=== PATIENT | male | born 1980 | race Caucasian/White ===

== ENCOUNTER 2018-06-25 08:27 | Emergency (ER) | payer BC, MEDICAID ==
[~2018-06-25] VITALS: Ht 182.9 cm; Wt 100.8 kg
[2018-06-25 08:31] VITALS: Ht 182.9 cm; Wt 100.8 kg
[2018-06-25] MEDS ORDERED: LIDOCAINE 1% (MDV) 10 ML INJ INJ STA (08:52)
[2018-06-25] MEDS ORDERED: LIDOCAINE 1% (MPF) 5 ML VIAL INJ SCH (09:00)
[2018-06-25] MEDS ORDERED: CLIN300C10 PO (09:20)
--- NOTE | 2018-06-25 09:21 | ERD ---
ER Documentation Chief Complaint Chief Complaint redness and swelling left 2nd finger nailbed HPI 37-year-old male is here with swelling to his left second finger that has had for 3 days. He is right-hand dominant. The area is getting larger and more painful. Is been no bleeding or drainage from it. No fever. No numbness or tingling. ROS All systems reviewed and are negative except as per history of present illness. Medications Home Meds Active Scripts Clindamycin Hcl* (Clindamycin Hcl*) 300 Mg Capsule, 300 MG PO TID for 7 Days, CAP Prov:EDITH DILLON PA-C 06/25/18 Allergies Allergies: Coded Allergies: No Known Allergy (Unverified , 10/09/13) PMhx/Soc Hx Alcohol Use: Yes Hx Substance Use: No Hx Tobacco Use: No FmHx Family History: No diabetes Physical Exam Vitals Vital Signs Date Temp Pulse Resp B/P (MAP) Pulse Ox O2 O2 Flow FiO2 Time Delivery Rate 06/25/18 98.7 88 18 134/83 100 08:31 (100) Physical Exam INITIAL VITAL SIGNS: Reviewed by me GENERAL: Awake, alert and oriented x 4, well appearing, nontoxic, speaking in full sentences. No acute distress HEAD: Atraumatic NECK: Supple. No masses. Full range of motion. No meningismus. No midline tenderness. RESPIRATORY: Clear to auscultation bilaterally. Symmetric chest wall rise. No wheezing or rales. No accessory muscle use. CV: Regular rate and rhythm. No murmurs, rubs, or gallops. EXTREMITIES: No clubbing or cyanosis. No edema. Moving all extremities normally. Left second digit paronychia at distal lateral nail bed Results 24 hrs Current Medications Medications Dose Sig/Beata Start Time Status Last (Trade) Ordered Route PRN Stop Time Admin Dose Reason Admin Lidocaine 10 ml ONCE STAT 06/25/18 DC HCl INJ 08:52 06/25/18 (Lidocaine 08:53 1% (Mdv) 10 ml) Lidocaine 1 ml ONCE INJ 06/25/18 DC (Xylocaine 09:00 06/25/18 1% (Mpf)) 09:01 Procedures/MDM The abscess was infiltrated with 1% Lidocaine for local anesthesia, digital block. A scalpel was then used to incise the central, fluctuant area of the abscess. There was immediate pus drainage from the wound. There were no complications and pt tolerated the procedure well. The would was appropriately dressed and bandaged. Pt was given prescription for clindamycin. Patient counseled regarding my diagnostic impression and care plan. Prior to discharge all questions answered. Pt agrees with treatment plan and understands strict return precautions. Pt is instructed to follow up with primary care provider within 24- 48 hours. Precautionary instructions provided including instructions to return to the ER if not improving or for any worsening or changing symptoms or concerns. Departure Diagnosis: Primary Impression: Paronychia Condition: Stable Patient Instructions: Paronychia Additional Instructions: Call your primary care doctor TOMORROW for an appointment during the next 1-2 days.See the doctor sooner or return here if your condition worsens before your appointment time. EDITH DILLON PA-C Jun 25, 2018 09:21
[2018-06-25 09:48] VITALS: BP 129/78; PULSE 99; RESP 18
== END 2018-06-25 09:48 | disposition home or self-care (01) ==
LOC: FTE 08:27
DX: L03.012 Cellulitis of left finger (principal)
CPT/HCPCS: 10060; 99283; Z7610